=== PATIENT | male | born 1950 | race Caucasian/White ===

== ENCOUNTER 2019-03-20 12:31 | Emergency (ER) | payer MEDICARE, OTHER ==
[~2019-03-20] VITALS: Ht 167.7 cm; Wt 78.3 kg
--- NOTE | 2019-03-20 13:20 | NUR ---
Pt voided a rurine sample and then post residual bladder scan check revealed 37 ml. 4 attempts and the 37 was highest result and on the bull's eye
[2019-03-20 13:39] LABS: CLARITY,URINE CLEAR; COLOR,URINE YELLOW; PH,URINE 5.5 (5-9)
[2019-03-20 13:40] LABS: GLUCOSE, URINE (UA) 2+ (NEGATIVE); KETONES,URINE 3+ (NEGATIVE); NITRITE,URINE NEGATIVE (NEGATIVE); PROTEIN,URINE TRACE (NEGATIVE)
[2019-03-20 13:41] LABS: BILIRUBIN,URINE 1+ (NEGATIVE); LEUKOCYTE ESTERASE ,URINE NEGATIVE (NEGATIVE)
[2019-03-20 13:42] LABS: BACTERIA,URINE NEGATIVE /HPF; SQUAMOUS EPITHELIAL CELL,UR RARE /HPF; WBC,URINE 0-2 /HPF
--- NOTE | 2019-03-20 14:23 | ED GU-Male ---
General Chief Complaint: - Urinary Stated Complaint: DIFFICULTY URINATING History of Present Illness Date Seen by Provider: Mar 20, 2019 Time Seen by Provider: 14:18 Initial Comments 68 yo male pt complains of frequent urination keeps trying to empty bladder and not getting much out is on antibiotics for tooth, feels infection has spread to urine denies hx urologic problems never dx'd diabetes doesn't feel sick no fever chills no N/V not weak or dizzy pt gave UA then bladder scan showing < 30ml Allergies and Home Medications Patient Home Medication List Home Medication List Reviewed: Yes Review of Systems Review of Systems Constitutional: No dizziness, No fever EENTM: no symptoms reported Respiratory: no symptoms reported Cardiovascular: no symptoms reported Gastrointestinal: No abdominal pain, No diarrhea, No nausea, No vomiting Past [id number] Hx Patient Social History Recent Foreign Travel: No Contact w/Someone Who Travel: No Physical Exam Vital Signs Vital Signs - First Documented 03/20/19 14:42 Pulse 89 96 98 B/P (MAP) 141/65 (90) 105/66 (79) 107/61 (76) Capillary Refill : Height, Weight, BMI Height: '" Weight: lbs. oz. kg; BMI Method: General Appearance: no apparent distress HEENT: pharynx normal, other (mucosa moist ) Neck: supple Cardiovascular: regular rate, rhythm Respiratory: lungs clear Gastrointestinal: normal bowel sounds, non tender, soft Progress/Results/Core Measures Suspected Sepsis SIRS Temperature: Pulse: Respiratory Rate: Blood Pressure / Mean: Results/Orders Lab Results Laboratory Tests Test 03/20/19 13:17 03/20/19 14:03 Range/Units Urine Color YELLOW Urine Clarity CLEAR Urine pH 5.5 5-9 Urine Specific [place] >=1.030 1.016-1.022 Urine Protein TRACE H NEGATIVE Urine Glucose (UA) 2+ H NEGATIVE Urine Ketones 3+ H NEGATIVE Urine Nitrite NEGATIVE NEGATIVE Urine Bilirubin 1+ H NEGATIVE Urine Urobilinogen 0.2 < = 1.0 MG/DL Urine Leukocyte Esterase NEGATIVE NEGATIVE Urine RBC (Auto) TRACE H NEGATIVE Urine RBC NONE /HPF Urine WBC 0-2 /HPF Urine Squamous Epithelial Cells RARE /HPF Urine Crystals NONE /LPF Urine Bacteria NEGATIVE /HPF Urine Casts NONE /LPF Urine Mucus NONE /LPF Urine Culture Indicated NO Glucometer 197 H 70-110 MG/DL My Orders Orders - DIANNE BHARDWAJ MD Urinalysis (03/20/19 13:08) Bladder Scan (03/20/19 13:08) Accucheck Stat ONCE (03/20/19 13:49) Orthostatic Vital Signs (Adult (03/20/19 14:26) Vital Signs/I&O 03/20/19 14:42 Pulse 89 96 98 B/P (MAP) 141/65 (90) 105/66 (79) 107/61 (76) Capillary Refill : Point of Care Testing Finger Stick Blood Glucose: 197 Blood Glucose Action Taken: reported to Dr Bhardwaj Progress Note : Progress Note UA > 1.030 2+ glucose 3+ ketones no evidence of infection fingerstick glucose 197 explained to pt may have type II diabetes sx's from elevated blood sugar orthostats + BP drop on standing advised giving 1 liter NS would be best pt doesn't want says will drink more avoid sweets, follow up with primary this week Departure Impression Primary Impression: Hyperglycemia Disposition: 01 HOME, SELF-CARE Condition: Improved Departure-Patient Inst. Decision time for Depature: 14:47 Referrals: SELFYASMEEN MD (PCP/Family) Primary Care Physician Patient Instructions: Hyperglycemia, Adult (DC) Add. Discharge Instructions: please avoid sweets drink plenty of water see your primary doctor soon for evaluation of possible diabetes fasting in the morning would be the best time to do that DIANNE BHARDWAJ MD Mar 20, 2019 14:23
[2019-03-20 14:42] VITALS: BP_SYST 105; BP_SYST 107; BP_SYST 141; BP_DIAS 61; BP_DIAS 65; BP_DIAS 66
[2019-03-20 15:00] VITALS: BP 107/61
[2019-03-20] MEDS ORDERED: TAMS0.4C98 (17:22)
[2019-03-20] MEDS ORDERED: AMOX1TAB12 PO (17:22)
== END 2019-03-20 15:00 | disposition home or self-care (01) ==
LOC: ER FS 12:35
DX: R73.9 Hyperglycemia, unspecified (principal)
CPT/HCPCS: 81000; 82962